=== PATIENT | female | born 1980 | race Caucasian/White ===

== ENCOUNTER → 2016-10-06 | Outpatient (CLI) | payer BC ==
[2016-10-06 13:36] LABS: MEAN CORPUSCULAR HEMOGLOBIN 30.2 pg (27.0-33.0); MEAN CORPUSCULAR HGB CONC 33.3 g/dl (32.0-36.5); MEAN CORPUSCULAR VOLUME 90.7 fl (80.0-96.0); RED CELL DISTRIBUTION WIDTH 12.7 % (11.5-14.5); WHITE BLOOD COUNT 8.3 K/mm3 (4.0-10.0)
== END ==
LOC: M SMT 08:08
PROVIDERS: ATTEND Advanced Practice Midwife
DX: Z34.82 Encounter for supervision of other normal pregnancy, second trimester (principal)
CPT/HCPCS: 36415; 82950; 85027; 86850; 86900; 86901; J2790

== ENCOUNTER → 2016-12-15 | Outpatient (REF) | payer BC | LOC: M LAB REF 16:49 | PROVIDERS: ATTEND Advanced Practice Midwife | DX: Z34.83 Encounter for supervision of other normal pregnancy, third trimester (principal) ==

== ENCOUNTER 2017-01-02 07:45 | Inpatient (IN) | payer BC ==
[~2017-01-02] VITALS: Ht 170.2 cm; Wt 95.0 kg
[2017-01-02] VITALS (36 sets, daily range): BP systolic 106–168; BP diastolic 52–91
[2017-01-02] MEDS ORDERED: RANI15TA PO (08:26)
[2017-01-02] MEDS ORDERED: PRENTAB9 PO (08:26)
--- NOTE | 2017-01-02 08:47 | HPE ---
DATE OF ADMISSION: 01/02/2017 36-year-old, (G) 2, para (P) 0-0-1-0 female at 39 and 2/7 weeks gestation by last menstrual period (LMP) consistent with 10 week ultrasound, expected date of confinement (EDC) of 01/07/2017 who presents with spontaneous loss of fluid per vagina at 5:30 a.m. on the morning of admission. She continued to leak fluid throughout the morning and she started to increase cramping contractions. She denies vaginal bleeding. COURSE: The patient initially had care at 10 weeks gestation on 06/15/2016. Her first trimester blood pressure was 120/60. Weight was 173 pounds. course was significant for an elevated quad screen with a 1:275 risk of Downs syndrome. She had a subsequent normal [place] test and normal consult at the Center in [place]. The remainder of her course was unremarkable. MEDICAL HISTORY: Cervical dysplasia. SURGICAL HISTORY: Cryotherapy to the cervix in 2000. ALLERGIES: No known drug allergies. SOCIAL HISTORY: The patient is . She denies cigarettes, alcohol or drug use during . FAMILY HISTORY: Noncontributory. PHYSICAL EXAMINATION: Blood pressure 124/72. Weight 215 pounds. She appears comfortable. Head and Neck Exam: Normal. Lungs: Clear. Heart: Regular rate and rhythm. Abdomen: Nontender. Gravid. heart tones Category 1. Extremities: Nontender. Sterile Vaginal Exam: Grossly ruptured, clear fluid noted. Cervix 2 cm, 80%, -2 station, posterior, vertex. LABS: Blood type O negative. Rubella immune. RPR nonreactive. Hepatitis B and C negative. HIV negative. Diabetes screen 64. GBS negative on 12/15/2016. ASSESSMENT: 36-year-old, G2, P0-0-1-0 female at 39 and 2/7 weeks gestation with spontaneous rupture of membranes. PLAN: To admit for delivery on 01/02/2017. Will augment early labor with misoprostol.
[2017-01-02 09:03] LABS: MEAN CORPUSCULAR HEMOGLOBIN 31.2 pg (27.0-33.0); MEAN CORPUSCULAR HGB CONC 34.2 g/dl (32.0-36.5); MEAN CORPUSCULAR VOLUME 91.3 fl (80.0-96.0); WHITE BLOOD COUNT 10.5 K/mm3 (4.0-10.0)
[2017-01-02] MEDS: miSOPROStol 50 MCG 1/2 TAB (S0191) PO SCH ×2 (09:04→13:16)
[2017-01-02] MEDS ORDERED: LR 1,000 ML IV SCH (18:20)
[2017-01-02] MEDS ORDERED: OXYTOCIN DRIP 30 UNITS in APPROPRIATE DILUENT 1 EA IV SCH (18:30)
[2017-01-02] MEDS ORDERED: FENTANYL 2MCG/ML ROPIVACAINE 0.2% IN 0.9% NACL 200ML IVBAG As Ordered ONE (21:02)
[2017-01-02] MEDS ORDERED: diphenhydrAMINE INJ 50MG/ML VIAL (J1200) IV PRN (21:45)
[2017-01-02] MEDS ORDERED: LACTATED RINGER'S 1000 ML IV PRN (21:45)
[2017-01-02] MEDS ORDERED: ONDANSETRON 4MG/2ML VIAL (J2405) IV PRN (21:45)
[2017-01-02] MEDS ORDERED: ePHEDrine SULFATE 25 MG/5 ML(5MG/ML) SYRINGE IV PRN (21:45)
[2017-01-02] MEDS ORDERED: FENTANYL/ROPIVACAINE/NACL BAG 200 ML EPIDURAL SCH (21:45)
[2017-01-02] MEDS ORDERED: NALOXONE INJ 0.4 MG/1 ML VIAL (J2310) IV PRN (21:45)
[2017-01-02] MEDS ORDERED: EPIDURAL COMMENT XX SCH (21:45)
[2017-01-02] MEDS ORDERED: EPIDURAL/PCA KEYS XX PRN (21:45)
[2017-01-02] MEDS ORDERED: REFRIGERATOR IV KEYS XX PRN (21:45)
[2017-01-03] VITALS (13 sets, daily range): BP systolic 115–146; BP diastolic 55–87
[2017-01-03] MEDS ORDERED: MORPHINE PRES-FREE INJ 10 MG/10 ML VIAL (J2274) As Ordered ONE (02:22)
[2017-01-03] MEDS ORDERED: BICITRA 30ML SOLN UDC As Ordered ONE (02:23)
[2017-01-03] MEDS ORDERED: ceFAZolin 2 GM/D5W 50 ML IV BAG (J0690) As Ordered ONE (02:23)
[2017-01-03] MEDS ORDERED: OXYTOCIN INJ 10 UNITS/ML VIAL (J2590) As Ordered ONE ×2 (02:23→03:02)
[2017-01-03] MEDS ORDERED: LIDOCAINE 2% W/EPIN INJ 20ML **PRES FREE As Ordered ONE (02:26)
[2017-01-03] MEDS ORDERED: BICITRA 30ML SOLN UDC PO ONE (02:30)
[2017-01-03] MEDS ORDERED: NALOXONE INJ 0.4 MG/1 ML VIAL (J2310) IV PRN ×2 (02:45)
[2017-01-03] MEDS ORDERED: METOCLOPRAMIDE INJ 10MG/2ML VIAL (J2765) IV PRN ×2 (02:45→04:00)
[2017-01-03] MEDS ORDERED: ONDANSETRON 4MG/2ML VIAL (J2405) IV PRN ×3 (02:45→04:00)
[2017-01-03] MEDS ORDERED: NALBUPHINE HCL 10 MG/ML AMP (J2300) IV PRN ×2 (02:45→04:00)
[2017-01-03] MEDS ORDERED: KETOROLAC 60 MG/2 ML VIAL (J1885) As Ordered ONE (03:04)
[2017-01-03] MEDS ORDERED: ONDANSETRON 4MG/2ML VIAL (J2405) As Ordered ONE (03:04)
[2017-01-03] MEDS: LR 1,000 ML IV SCH ×2 (03:40→09:01)
[2017-01-03] MEDS ORDERED: PERCOCET 5MG/325MG TAB PO PRN ×2 (03:45→04:00)
[2017-01-03] MEDS ORDERED: MEASLES,MUMPS,RUBELLA VACCINE INJ (MMR-II) (90707) SC SCH (03:45)
[2017-01-03] MEDS ORDERED: OXYTOCIN DRIP 30 UNITS in APPROPRIATE DILUENT 1 EA IV ONE (03:45)
[2017-01-03] MEDS ORDERED: RHOGAM 300 MCG (1500 IU) INJ (J2790) IM SCH (03:45)
[2017-01-03] MEDS ORDERED: DOCUSATE SODIUM 100 MG CAP PO PRN (03:45)
[2017-01-03 03:47] LABS: CORD GAS ABE V -0.8; CORD GAS HCO3 V 25.1 MEQ/L; CORD GAS O2 SAT V 67.9 %; CORD GAS PCO2 V 46.1 mmHg; CORD GAS PH V 7.354 UNITS; CORD GAS PO2 V 29.9 mmHg; CORD GAS TCO2 V 26.5 MEQ/L
[2017-01-03 03:49] LABS: CORD GAS ABE A -0.6; CORD GAS HCO3 A 27.9 MEQ/L; CORD GAS O2 SAT A 15.2 %; CORD GAS PCO2 A 62.3 mmHg; CORD GAS PH A 7.269 UNITS; CORD GAS PO2 A 11.4 mmHg; CORD GAS SBC A 21.9 MEQ/L; CORD GAS TCO2 A 29.8 MEQ/L
[2017-01-03] MEDS ORDERED: fentaNYL 100 MCG/2 ML INJECTION (J3010) IV PRN (04:00)
[2017-01-03] MEDS ORDERED: HYDROmorphone HCL 1 MG/ML SYRINGE (J1170) IV PRN (04:00)
[2017-01-03] MEDS ORDERED: LR 1,000 ML IV SCH (04:00)
[2017-01-03] MEDS ORDERED: MEPERIDINE INJ 25 MG/ML VIAL (J2175) IV PRN (04:00)
[2017-01-03] MEDS: PRENATAL VITAMIN TAB PO SCH (08:59)
[2017-01-03] MEDS: KETOROLAC 30 MG/ML VIAL (J1885) IV SCH ×3 (09:00→20:37)
[2017-01-04 02:15] VITALS: BP 123/73
[2017-01-04] MEDS: KETOROLAC 30 MG/ML VIAL (J1885) IV SCH (04:06)
[2017-01-04 06:00] VITALS: BP 117/71
[2017-01-04 07:19] LABS: MEAN CORPUSCULAR HEMOGLOBIN 30.2 pg (27.0-33.0); MEAN CORPUSCULAR HGB CONC 32.6 g/dl (32.0-36.5); MEAN CORPUSCULAR VOLUME 92.6 fl (80.0-96.0); RED CELL DISTRIBUTION WIDTH 13.1 % (11.5-14.5); WHITE BLOOD COUNT 12.8 K/mm3 (4.0-10.0)
[2017-01-04] MEDS: PRENATAL VITAMIN TAB PO SCH (08:40)
[2017-01-04 10:15] VITALS: BP 144/80
--- NOTE | 2017-01-04 10:43 | RO ---
DATE OF PROCEDURE: 01/03/2017 PREPROCEDURE DIAGNOSIS: 39 plus weeks gestation, arrest of descent, brow presentation. POSTPROCEDURE DIAGNOSIS: 39 plus weeks gestation, arrest of descent, brow presentation. PROCEDURE: Primary low transverse section. SURGEON: Dr. Hank Knapp BEHAVIORAL HEALTH WORKER: ANESTHESIA: Epidural. ESTIMATED BLOOD LOSS 400 mL. URINE OUTPUT: 200 mL. FINDINGS: 6 pounds, 13 ounce 3090 gram female infant. Apgars 8 and 9 in the occiput posterior brow position. Nuchal cord times one. Normal uterus , fallopian tubes and ovaries. DESCRIPTION OF PROCEDURE: The patient taken to the operating room where epidural anesthesia was found to be adequate. She was prepped and draped in a sterile fashion in the supine position. A Davis catheter was in place. A Pfannenstiel incision made with the scalpel and carried through to the fascia. The fascia was nicked and extended to the peritoneal cavity. It was entered and a bladder flap was created. A curvilinear incision was made in the lower uterine segment. Clear fluid was noted. This was extended manually. was delivered in the vertex position without difficulty using standard maneuvers. The shoulders delivered with ease. The cried spontaneously, the cord was doubly clamped and cut. The was handed off the awaiting nurse. The placenta was expressed. The uterus exteriorized and cleared of clots and debris. The uterine incision was closed with 0 Vicryl in an a running locked fashion. A second imbricating layer of 0 Vicryl was placed. The uterus placed back in the abdominal cavity. The peritoneum was closed with #2-0 Vicryl in a running fashion. The fascia was closed with 0 Vicryl in a running fashion. The deep layer was irrigated and closed with #3-0 chromic skin as well #4-0 Monocryl subcuticular suture. Sponge, instrument and needle counts were correct.
[2017-01-04] MEDS: IBUPROFEN 800 MG TAB PO SCH ×2 (10:56→18:56)
[2017-01-04 14:50] VITALS: BP 125/76
[2017-01-04] MEDS: PERCOCET 5MG/325MG TAB PO PRN (16:52)
[2017-01-04 17:28] VITALS: BP 129/73
[2017-01-04 22:25] VITALS: BP 126/74
[2017-01-05] MEDS: PERCOCET 5MG/325MG TAB PO PRN ×2 (01:12→06:55)
[2017-01-05] MEDS: IBUPROFEN 800 MG TAB PO SCH (02:49)
--- NOTE | 2017-01-05 07:23 | DSES ---
Discharge Summary DATE OF ADMISSION: 01/02/2017 DATE OF DISCHARGE: 01/05/2017 DISCHARGE DIAGNOSIS: Primary section, postop day #2, stable condition. SURGEON: Dr Hank Knapp HISTORY: Rose Marie is a 36-year-old, 2, para 1-0-1-1 now, who was admitted to labor and delivery at 39-2/7 weeks gestation with spontaneous rupture of membranes. Her labor was augmented with misoprostol and intravenous (IV) Pitocin. She did utilize an epidural for her labor coping. She underwent primary section on 01/03/2017 for arrest of descent with malpresentation, brow presentation, Dr. Hank Knapp, surgeon. She delivered a live female weighing 3090 grams (6 pounds 13 ounces), 8 and 9. Her postoperative course has been uncomplicated. Her pain has been well controlled with oral ibuprofen and Percocet. She has been out of bed for self care, infant care and tyson care. She is voiding without difficulty, passing flatus and has no complaints today. well. Vital signs last noted : Temperature 98.2, pulse 73, respirations 18, blood pressure 126/74. She is alert and oriented times three. She is smiling and talkative. Breasts are soft, nontender. Abdomen: Fundus firm at U. Incision is well-approximated. There is no drainage, no warmth, no redness and no edema. Perineum is intact. Lochia rubra scant. Bilateral lower extremity + 1 pitting edema. ASSESSMENT: Primary section, postop day #2,stable condition. PLAN: Discharge the patient to home. Prescriptions have been the prescribed by Dr. Knapp for Percocet 5/325, 1-2 tablets by mouth every 6 hours as needed for pain and [id number] ibuprofen as needed. I did review discharge instructions with the patient, including breast care, incision care, tyson care, pelvic rest, activity and lifting restrictions, access to care, danger signs in which to report as well. She is to followup [facility] for a 2-week incision check and a 6-week visit. All the patient's questions have been answered and she does desire discharge home today. [facility]ITAL[facility]and[facility]
[2017-01-05] MEDS ORDERED: IBUP-1114 PO (07:48)
[2017-01-05] MEDS ORDERED: STUACAP PO (07:48)
[2017-01-05] MEDS ORDERED: OXYC1TAB23 PO ×3 (07:49→11:49)
[2017-01-05] MEDS: PRENATAL VITAMIN TAB PO SCH (08:14)
== END 2017-01-05 11:00 | disposition home or self-care (01) | DRG 540 ==
LOC: M LDO 07:45 → M LDI 08:12 → M OBS 01-03 05:15
PROVIDERS: ADMIT Specialist; ATTEND Specialist
PROC: 10D00Z1 Extraction of Products of Conception, Low, Open Approach (ICD-10-PCS; principal; 2017-01-03)
DX: O32.4XX0 Maternal care for high head at term, not applicable or unspecified (principal); Z37.0 Single live birth; Z3A.39 39 weeks gestation of pregnancy; O32.3XX0 Maternal care for face, brow and chin presentation, not applicable or unspecified

== ENCOUNTER → 2018-03-04 | Outpatient (REF) | payer BC ==
[2018-03-04 22:54] LABS: CHLAMYDIA DNA AMPLIFICATION NEGATIVE (NEGATIVE); GC DNA AMPLIFICATION NEGATIVE (NEGATIVE)
== END ==
LOC: M LAB REF 18:19
DX: Z11.3 Encounter for screening for infections with a predominantly sexual mode of transmission (principal); R10.30 Lower abdominal pain, unspecified
CPT/HCPCS: 87591

== ENCOUNTER → 2018-03-04 | Outpatient (REF) | payer BC | LOC: M SFHCPLAZ 17:02 | DX: Z00.00 Encounter for general adult medical examination without abnormal findings (principal); G43.909 Migraine, unspecified, not intractable, without status migrainosus; L70.9 Acne, unspecified ==

== ENCOUNTER → 2018-03-14 | Outpatient (CLI) | payer BC | LOC: M RAD 17:11 | DX: R10.30 Lower abdominal pain, unspecified (principal) | CPT/HCPCS: 76856 ==

== ENCOUNTER → 2018-06-03 | Outpatient (CLI) | payer BC ==
[2018-06-03 10:08] LABS: ANION GAP 7 MEQ/L (8-16); BLOOD UREA NITROGEN 16 MG/DL (7-18); CALCIUM LEVEL 8.6 MG/DL (8.5-10.1); CARBON DIOXIDE LEVEL 27 MEQ/L (21-32); CHLORIDE LEVEL 108 MEQ/L (98-107); CHOLESTEROL LEVEL 182 MG/DL (<200); CHOLESTEROL RISK RATIO 3.084 (<5); CREATININE FOR GFR 0.85 MG/DL (0.55-1.30); FREE T4 0.98 NG/DL (0.76-1.46); GLOMERULAR FILTRATION RATE > 60.0 (>60); GLUCOSE, FASTING 87 MG/DL (70-100); HDL CHOLESTEROL 59 MG/DL (>40); LDL CHOLESTEROL 107 MG/DL (<100); NON-HDL-C 123 MG/DL; POTASSIUM SERUM 3.9 MEQ/L (3.5-5.1); SODIUM LEVEL 142 MEQ/L (136-145); THYROID STIMULATING HORMONE 0.884 uIU/ML (0.358-3.740); TRIGLYCERIDES LEVEL 79 MG/DL (<150)
== END ==
LOC: M LAB 08:27
DX: Z00.00 Encounter for general adult medical examination without abnormal findings (principal)
CPT/HCPCS: 84443

== ENCOUNTER → 2018-11-13 | Outpatient (REF) | payer BC ==
[~2018-11-13] MED LIST: IBUP-1114 PO; OXYC1TAB23 PO; PRENTAB9 PO; RANI15TA PO; STUACAP PO
== END ==
LOC: M SFHCPLAZ 15:38
PROVIDERS: ATTEND Nurse Practitioner Family
DX: Z53.9 Procedure and treatment not carried out, unspecified reason (principal); R19.01 Right upper quadrant abdominal swelling, mass and lump

== ENCOUNTER → 2018-11-29 | Outpatient (CLI) | payer BC ==
--- NOTE | 2018-11-29 11:25 | REP ---
BILATERAL RIBS, EIGHT VIEWS: HISTORY: Right rib pain. The lungs are clear. There is no acute fracture or bone lesion. IMPRESSION: No acute disease. Electronically Signed by Hank Boogie MD 11/29/2018 11:32 A
== END ==
LOC: M SMT 08:58
PROVIDERS: ATTEND Nurse Practitioner Family
DX: R07.81 Pleurodynia (principal)

== ENCOUNTER 2019-01-24 11:07 | Emergency (ER) | payer BC ==
[~2019-01-24] VITALS: Ht 170.2 cm; Wt 80.2 kg
[2019-01-24 11:43] LABS: BASO % 0.6 % (0.0-1.0); EOS % 0.6 % (0.0-3.0); HEMATOCRIT 41.1 % (36.0-47.0); HEMOGLOBIN 13.9 g/dl (12.0-15.5); LYMPH # 1.7 10^3/uL (1.5-4.5); LYMPH % 35.1 % (24.0-44.0); MEAN CORPUSCULAR HGB CONC 33.8 g/dl (32.0-36.5); MEAN CORPUSCULAR VOLUME 88.6 fl (80.0-96.0); MONO # 0.4 10^3/uL (0.0-0.8); MONO % 7.8 % (0.0-5.0); NEUTROPHILS # 2.6 10^3/uL (1.8-7.7); NEUTROPHILS % 55.7 % (36.0-66.0); PLATELET COUNT, AUTOMATED 211 10^3/uL (150-450); RED BLOOD COUNT 4.64 10^6/uL (4.00-5.40); WHITE BLOOD COUNT 4.7 10^3/uL (4.0-10.0)
[2019-01-24 12:28] LABS: BLOOD UREA NITROGEN 12 MG/DL (7-18); CALCIUM LEVEL 9.2 MG/DL (8.5-10.1); CARBON DIOXIDE LEVEL 26 MEQ/L (21-32); CHLORIDE LEVEL 106 MEQ/L (98-107); CREATININE FOR GFR 0.65 MG/DL (0.55-1.30); GLOMERULAR FILTRATION RATE > 60.0 (>60); GLUCOSE, FASTING 89 MG/DL (70-100); HCG, SERUM QUANTITATIVE 14435 MIU/ML; POTASSIUM SERUM 3.8 MEQ/L (3.5-5.1); SODIUM LEVEL 140 MEQ/L (136-145)
--- NOTE | 2019-01-24 13:22 | REP ---
PELVIC ULTRASOUND: Real-time sonographic evaluation of the pelvis performed utilizing transabdominal and endovaginal technique. Uterus measures 8.7 x 3.7 x 6.5 cm. In the right fundal horn of the uterus an irregular gestational sac is seen with a mean sac diameter of 16 mm corresponding to an estimated gestational age of 6 weeks 3 days. However this is very peripherally located and laterally there is only 1 mm thickness of myometrium. This is most consistent with a right cornual ectopic . Within the gestational sac there is a yolk sac and a possible 3 mm pole without heart motion. Right ovary measures 3.4 x 1.7 x 2.2 cm and contains a complex cystic structure probably representing a corpus luteum 1.8 cm in diameter. Left ovary is unremarkable 3.4 x 1.2 x 1.8 cm. There is no ovarian torsion, resistive index of each ovary is 0.44. Trace free fluid is seen. IMPRESSION: Findings compatible with right cornual ectopic as discussed in detail above. Electronically Signed by Evgeny Cahng MD 01/24/2019 04:17 P
[2019-01-24] MEDS ORDERED: RHOGAM 300 MCG (1500 IU) INJ (J2790) IM ONE (14:45)
[2019-01-24 16:05] VITALS: BP 121/71
--- NOTE | 2019-01-25 08:42 | ED PDOC ---
Post-Departure Follow-Up dr jackson faxed formal report of ob us for fu Kam Jacinto MD Jan 25, 2019 08:42
== END 2019-01-24 16:18 | disposition home or self-care (01) ==
LOC: M ED 11:07
DX: O08.0 Genital tract and pelvic infection following ectopic and molar pregnancy (principal); O26.851 Spotting complicating pregnancy, first trimester; Z3A.01 Less than 8 weeks gestation of pregnancy
CPT/HCPCS: 76801; 76817; 80048; 81001; 84702; 85025; 86850; 86901; 93976; 96372; 99284; J2790

== ENCOUNTER 2019-01-25 12:49 | Day surgery (SDC) | payer BC ==
[~2019-01-25] VITALS: Ht 170.2 cm; Wt 80.6 kg
[2019-01-25] MEDS ORDERED: MORPHINE 4 MG/ML 1ML VIAL/SYRINGE (J2270) IV ONE (13:45)
[2019-01-25] MEDS ORDERED: ONDANSETRON 4MG/2ML VIAL (J2405) IV ONE (13:45)
[2019-01-25] MEDS ORDERED: NS 1,000 ML IV ONE (14:00)
[2019-01-25 14:50] LABS: BASO % 0.7 % (0.0-1.0); EOS # 0.1 10^3/uL (0.0-0.50); EOS % 1.3 % (0.0-3.0); HEMATOCRIT 41.2 % (36.0-47.0); HEMOGLOBIN 13.9 g/dl (12.0-15.5); LYMPH # 2.2 10^3/uL (1.5-4.5); LYMPH % 39.9 % (24.0-44.0); MEAN CORPUSCULAR HGB CONC 33.7 g/dl (32.0-36.5); MEAN CORPUSCULAR VOLUME 88.8 fl (80.0-96.0); MONO # 0.4 10^3/uL (0.0-0.8); MONO % 7.5 % (0.0-5.0); NEUTROPHILS # 2.8 10^3/uL (1.8-7.7); NEUTROPHILS % 50.4 % (36.0-66.0); PLATELET COUNT, AUTOMATED 222 10^3/uL (150-450); RED BLOOD COUNT 4.64 10^6/uL (4.00-5.40); WHITE BLOOD COUNT 5.5 10^3/uL (4.0-10.0)
[2019-01-25 15:32] LABS: ALBUMIN 4.2 GM/DL (3.2-5.2); ALT/SGPT 20 U/L (12-78); BILIRUBIN,TOTAL 0.2 MG/DL (0.2-1.0); BLOOD UREA NITROGEN 12 MG/DL (7-18); CALCIUM LEVEL 8.7 MG/DL (8.5-10.1); CARBON DIOXIDE LEVEL 25 MEQ/L (21-32); CHLORIDE LEVEL 108 MEQ/L (98-107); GLOMERULAR FILTRATION RATE > 60.0 (>60); GLUCOSE, FASTING 89 MG/DL (70-100); HCG, SERUM QUANTITATIVE 13766 MIU/ML; POTASSIUM SERUM 3.6 MEQ/L (3.5-5.1); SODIUM LEVEL 144 MEQ/L (136-145); TOTAL PROTEIN 7.5 GM/DL (6.4-8.2)
--- NOTE | 2019-01-25 15:42 | REP ---
Clinical: Pelvic pain and vaginal bleeding. Technique: Transabdominal and transvaginal first trimester obstetrical ultrasound with color Doppler evaluation. Comparison: 01/24/2019. Findings: Heterogeneous anteverted uterus with decidual reaction measures 8.4 x 3.9 x 5.0 cm. The gestational sac is now elongated in appearance and again identified along the right side of the fundus with less than 1.7 mm of surrounding myometrium. Bilateral maternal ovaries are normal in appearance and vascularity without torsion. Right ovary measures 2.5 x 1.6 x 1.9 cm with 1.3 cm corpus luteal cyst (RI 0.41). Left ovary measures 2.1 x 1.3 x 1.5 cm (RI 0.67). Impression: Findings are suspicious for cornual ectopic and the abnormal shape to the gestational sac suggest the possibility of impending spontaneous . Close clinical observation is recommended. Electronically Signed by Sukumar Stoddard MD 01/25/2019 03:33 P
[2019-01-25] MEDS ORDERED: LIDOCAINE 1% MDV 20ML VIAL As Ordered ONE (17:39)
[2019-01-25] MEDS ORDERED: DOXYCYCLINE HYCLATE 100 MG/10 ML VIAL As Ordered ONE (17:54)
[2019-01-25] MEDS ORDERED: LIDOCAINE 2% INJ 100 MG/5 ML SDV (FOR ANES.) As Ordered ONE (17:55)
[2019-01-25] MEDS ORDERED: MIDAZOLAM INJ 2 MG/2 ML VIAL (J2250) As Ordered ONE ×2 (17:55→20:32)
[2019-01-25] MEDS ORDERED: fentaNYL 100 MCG/2 ML INJECTION (J3010) As Ordered ONE (17:55)
[2019-01-25] MEDS ORDERED: PROPOFOL 200 MG/20 ML VIAL As Ordered ONE ×2 (17:55→21:33)
[2019-01-25] MEDS ORDERED: ONDANSETRON 4MG/2ML VIAL (J2405) As Ordered ONE (20:33)
[2019-01-25] MEDS ORDERED: SILVER NITRATE APPLICATOR As Ordered ONE (21:36)
[2019-01-25] MEDS: LR 1,000 ML IV SCH ×2 (21:48→22:32)
[2019-01-25] MEDS ORDERED: MEPERIDINE INJ 25 MG/ML VIAL (J2175) IV PRN (22:00)
[2019-01-25] MEDS ORDERED: PERCOCET 5MG/325MG TAB PO PRN (22:00)
[2019-01-25] MEDS ORDERED: ONDANSETRON 4MG/2ML VIAL (J2405) IV PRN (22:00)
[2019-01-25] MEDS ORDERED: METOCLOPRAMIDE INJ 10MG/2ML VIAL (J2765) IV PRN (22:00)
[2019-01-25] MEDS ORDERED: fentaNYL 100 MCG/2 ML INJECTION (J3010) IV PRN (22:00)
[2019-01-25] MEDS ORDERED: PERCOCET 5MG/325MG TAB As Ordered ONE (22:07)
[2019-01-25] MEDS ORDERED: LR 1,000 ML IV SCH (22:30)
[2019-01-25 22:45] VITALS: BP 125/79
[2019-01-25 23:15] VITALS: BP 121/66
[2019-01-25 23:45] VITALS: BP 115/56
[2019-01-26 00:20] VITALS: BP 118/60
--- NOTE | 2019-01-27 08:21 | RO ---
DATE OF PROCEDURE: 01/25/2019 PREOPERATIVE DIAGNOSIS: First trimester loss, of unknown location. Cornual ectopic versus failed intrauterine /spontaneous . POSTOPERATIVE DIAGNOSIS: First trimester loss, of unknown location. Cornual ectopic versus failed intrauterine /spontaneous . Pathology was pending at the conclusion of the procedure. FINDINGS: Intrauterine tissue obtained during suction D&C was grossly consistent with products of conception. PROCEDURE PERFORMED: Suction dilation and curettage, hysteroscopy. SURGEON: Dr. Etienne Alves DO FACOG RULING MACHINE FEEDER: none ANESTHESIA: Monitored anesthesia care (MAC) and local paracervical block. SPECIMENS TO PATHOLOGY: Intrauterine tissue. ESTIMATED BLOOD LOSS: 100 mL. FLUIDS REPLACED: 300 mL crystalloid intraoperatively DRAINS: In-and-out catheter 50-100 mL urine output. COMPLICATIONS: None. PREOPERATIVE ANTIBIOTICS: Doxycycline 100 mg IV times one. INDICATION: The patient is a 39-year-old G3, now P1-0-2-1. She is approximately 6-7 weeks by last menstrual period. She presented to the emergency room (ER) twice in the past 2 days with complaints of vaginal bleeding. Yesterday her quantitative hCG was around 14,000 with a pelvic ultrasound that was suggestive of a cornual ectopic . However, I reviewed the images myself and put this diagnosis into question. There remained a possibility of this being an intrauterine . The plan yesterday was to have the patient return for a quantitative hCG level in 48 hours and a repeat ultrasound. However, the patient experienced pain and bleeding that prompted an earlier return to the ER. The quantitative hCG level on repeat was 13,000 indicating an abnormal . The pelvic ultrasound was again suggestive of a cornual ectopic but, again, there was no definitive evidence. The decision was made to proceed with a suction dilation curettage to obtain the intrauterine tissue. I also had the plan of looking hysteroscopically to see if there was any evidence of intrauterine tissue that was consistent with products of conception. The patient agreed to proceed with this plan. She was taken to the operating room with an IV running and in good and stable condition. DESCRIPTION OF PROCEDURE: After the patient was counseled and consented on the risks, benefits, indications and alternatives of the procedure and informed consent was obtained, she was taken to the operating room with an IV running and placed on operating table. Anesthesia was found to be adequate. The patient was comfortable and asleep. She was placed in the high lithotomy position. She was prepared and draped in a normal sterile fashion. Time-out was performed per protocol. The bladder was drained with an in-and-out sterile catheter. The sterile speculum was placed with good visualization of the cervix. The anterior lip of the cervix was grasped with single-tooth tenaculum and downward traction was applied. The cervix was sequentially dilated with Matthew dilators. The hysteroscope was placed transcervical into the intrauterine cavity. In the left corner of the uterus, there did appear to be intrauterine tissue consistent with products of conception. The hysteroscope was removed. The suction curette was placed transcervical into the intrauterine cavity and suction was applied. Tissue and blood return was noted and suction was continued until of minimal blood and tissue return. That curette was removed. The sharp curette was placed transcervically into the intrauterine cavity and a sharp curettage was performed throughout the cavity until a gritty texture was noted throughout the cavity. Minimal tissue return was noted. The hysteroscope was placed one additional time into the intrauterine cavity to ensure that all the tissue had been removed. The cavity was empty of any tissue that would be concerning for products of conception. The hysteroscope was removed. The single-tooth tenaculum was removed. The tenaculum sites were cauterized with the silver nitrate. The tissue was sent for fresh-frozen evaluation to ensure there were chorionic villi with this tissue. This would indicate a failed intrauterine /spontaneous . Of note after the frozen section and after the patient had been transferred to the postanesthesia care unit (PACU), it was confirmed that there was chorionic villi present within the frozen section, making the diagnosis consistent with a failed intrauterine . The patient was notified of this information. She will be discharged home with plans to follow up in 2-3 weeks. Of note, the sponge and instrument counts were correct per protocol. She was transferred to PACU in good stable to good and stable condition. BENJAMIN
== END 2019-01-26 00:25 | disposition home or self-care (01) ==
LOC: M ED 12:49 → M SDC 17:00 → M ED 17:56 → M PED 22:42 → M SDC 01-26 00:25
PROVIDERS: ATTEND Obstetrics & Gynecology
DX: O02.1 Missed abortion (principal)
CPT/HCPCS: 59820; 76801; 76817; 80053; 84702; 85025; 88305; 93976; 96361; 96374; 96375; 99284; J2250; J2270; J2405; J3010

== ENCOUNTER → 2019-04-07 | Outpatient (CLI) | payer BC ==
[~2019-04-07] MED LIST changes: +otc prenatal vit
== END ==
LOC: M LAB 16:40
PROVIDERS: ATTEND Obstetrics & Gynecology
DX: N91.2 Amenorrhea, unspecified (principal)

== ENCOUNTER → 2019-04-09 | Outpatient (CLI) | payer BC ==
[~2019-04-09] MED LIST changes: -otc prenatal vit
== END ==
LOC: M LAB 16:54
PROVIDERS: ATTEND Obstetrics & Gynecology
DX: N91.2 Amenorrhea, unspecified (principal)

== ENCOUNTER → 2019-04-15 | Outpatient (CLI) | payer BC | LOC: M SMT 11:58 | PROVIDERS: ATTEND Obstetrics & Gynecology | DX: O20.0 Threatened abortion (principal); Z3A.00 Weeks of gestation of pregnancy not specified ==

== ENCOUNTER → 2019-04-17 | Outpatient (CLI) | payer BC ==
--- NOTE | 2019-04-17 09:43 | REP ---
First trimester obstetric ultrasound with cramping and spotting, question of ectopic gestation, stat request: The study is performed with transabdominal, endovaginal and Doppler ultrasound assessment: The bladder is adequately distended. The uterus is anteverted and normal size. There is an intrauterine gestational sac in the uterine fundus. There is no identifiable pole, however, there is a yolk sac. The mean gestational os sac diameter is 5.7 mm corresponding to a gestational age of 5 weeks 2 days. CULLEN is 12/16/2019. The The yolk sac is normal size measuring 1.9 mm in diameter. There is no subchorionic hematoma. Right ovary: The right ovary is normal size measuring 2.2 x 1.9 x 1.7 cm. There is no dominant mass or cyst. There is vascular flow with the Doppler resistive index of the parenchymal arteries measuring 0.49. Left ovary: Left ovary is normal size measuring 4.0 x 2.1 x 2.1 cm. There is no dominant mass or cyst. There is vascular flow with the Doppler resistive index of the parenchymal arteries measuring 0.45. There are no adnexal masses. Impression: There is an intrauterine gestational sac with a normal size yolk sac but no pole as described. There are no adnexal masses. There is no free fluid in the pelvis. No subchorionic hematoma. Electronically Signed by Evgeny Puckett MD 04/17/2019 09:35 A
== END ==
LOC: M RAD 08:46
PROVIDERS: ATTEND Obstetrics & Gynecology
DX: O20.0 Threatened abortion (principal); Z3A.01 Less than 8 weeks gestation of pregnancy

== ENCOUNTER 2019-05-01 18:38 | Emergency (ER) | payer BC ==
[~2019-05-01] VITALS: Ht 170.2 cm; Wt 84.5 kg
[2019-05-01] MEDS ORDERED: otc prenatal vit (18:44)
[2019-05-01 19:49] LABS: BASO % 0.6 % (0.0-1.0); EOS # 0.1 10^3/uL (0.0-0.5); EOS % 1.7 % (0.0-3.0); HEMATOCRIT 39.8 % (36.0-47.0); HEMOGLOBIN 13.2 g/dl (12.0-15.5); LYMPH # 2.4 10^3/uL (1.5-5.0); LYMPH % 33.1 % (24.0-44.0); MEAN CORPUSCULAR HEMOGLOBIN 29.3 pg (27.0-33.0); MEAN CORPUSCULAR HGB CONC 33.2 g/dl (32.0-36.5); MEAN CORPUSCULAR VOLUME 88.4 fl (80.0-96.0); MONO # 0.5 10^3/uL (0.0-0.8); MONO % 7.2 % (0.0-5.0); NEUTROPHILS # 4.2 10^3/uL (1.5-8.5); NEUTROPHILS % 57.1 % (36.0-66.0); PLATELET COUNT, AUTOMATED 239 10^3/uL (150-450); WHITE BLOOD COUNT 7.3 10^3/uL (4.0-10.0)
[2019-05-01 20:14] LABS: BLOOD UREA NITROGEN 14 MG/DL (7-18); CALCIUM LEVEL 9.3 MG/DL (8.5-10.1); CARBON DIOXIDE LEVEL 33 MEQ/L (21-32); CHLORIDE LEVEL 105 MEQ/L (98-107); CREATININE FOR GFR 0.69 MG/DL (0.55-1.30); GLOMERULAR FILTRATION RATE > 60.0 (>60); GLUCOSE, FASTING 81 MG/DL (70-100); POTASSIUM SERUM 3.6 MEQ/L (3.5-5.1); SODIUM LEVEL 139 MEQ/L (136-145)
[2019-05-01] MEDS ORDERED: RHOGAM 300 MCG (1500 IU) INJ (J2790) IM ONE (21:00)
[2019-05-01 21:24] LABS: HCG, SERUM QUANTITATIVE 26101 MIU/ML
[2019-05-01 22:37] VITALS: BP 110/55
== END 2019-05-01 22:40 | disposition home or self-care (01) ==
LOC: M ED 18:38
DX: O20.8 Other hemorrhage in early pregnancy (principal); Z87.59 Personal history of other complications of pregnancy, childbirth and the puerperium; O09.529 Supervision of elderly multigravida, unspecified trimester; Z3A.00 Weeks of gestation of pregnancy not specified; Z79.899 Other long term (current) drug therapy
CPT/HCPCS: 80048; 81001; 84702; 85025; 86850; 86900; 86901; 96372; 99283; J2790

== ENCOUNTER → 2019-05-30 | Outpatient (CLI) | payer BC ==
[~2019-05-30] MED LIST changes: +otc prenatal vit
== END ==
LOC: M SMT 14:33
PROVIDERS: ATTEND Obstetrics & Gynecology
DX: O03.4 Incomplete spontaneous abortion without complication (principal)

== ENCOUNTER → 2019-06-05 | Outpatient (CLI) | payer BC | LOC: M SMT 11:49 | PROVIDERS: ATTEND Obstetrics & Gynecology | DX: O03.4 Incomplete spontaneous abortion without complication (principal) ==

== ENCOUNTER → 2019-06-13 | Outpatient (CLI) | payer BC | LOC: M SMT 15:13 | PROVIDERS: ATTEND Obstetrics & Gynecology | DX: O03.4 Incomplete spontaneous abortion without complication (principal) ==

== ENCOUNTER → 2019-06-19 | Outpatient (CLI) | payer BC ==
[2019-06-19 18:11] LABS: HEMATOCRIT 39.6 % (36.0-47.0); HEMOGLOBIN 12.9 g/dl (12.0-15.5); MEAN CORPUSCULAR HEMOGLOBIN 29.1 pg (27.0-33.0); MEAN CORPUSCULAR HGB CONC 32.6 g/dl (32.0-36.5); MEAN CORPUSCULAR VOLUME 89.4 fl (80.0-96.0); PLATELET COUNT, AUTOMATED 251 10^3/uL (150-450); RED BLOOD COUNT 4.43 10^6/uL (4.00-5.40)
[2019-06-19 18:18] LABS: FREE T4 0.95 NG/DL (0.76-1.46); THYROID STIMULATING HORMONE 0.74 uIU/ML (0.358-3.740)
[2019-06-19 18:44] LABS: HEMOGLOBIN A1c 5.2 %
[2019-06-22 00:06] LABS: CARDIOLIPIN IGA ANTIBODY <9 APL U/mL (0-11); CARDIOLIPIN IGG ANTIBODY <9 GPL U/mL (0-14); CARDIOLIPIN IGM ANTIBODY <9 MPL U/mL (0-12)
[2019-06-24 10:15] LABS: DRVV SCREEN 34.2 SEC
[2019-06-24 10:17] LABS: PTT LUPUS TYPE ANTICOAG SCREEN 0.8 (0-1.2)
== END ==
LOC: M SMT 14:35
PROVIDERS: ATTEND Obstetrics & Gynecology
DX: O03.4 Incomplete spontaneous abortion without complication (principal); N96 Recurrent pregnancy loss

== ENCOUNTER → 2019-07-15 | Outpatient (CLI) | payer BC | LOC: M SMT 12:02 | PROVIDERS: ATTEND Obstetrics & Gynecology | DX: O03.4 Incomplete spontaneous abortion without complication (principal) ==

== ENCOUNTER → 2019-07-21 | Outpatient (CLI) | payer BC | LOC: M PLALAB 09:38 | PROVIDERS: ATTEND Obstetrics & Gynecology | DX: O03.4 Incomplete spontaneous abortion without complication (principal) ==

== ENCOUNTER → 2019-08-05 | Outpatient (CLI) | payer BC | LOC: M PLALAB 08:35 | PROVIDERS: ATTEND Obstetrics & Gynecology | DX: O03.4 Incomplete spontaneous abortion without complication (principal) ==

== ENCOUNTER → 2019-08-14 | Outpatient (CLI) | payer BC | LOC: M PLALAB 12:22 | PROVIDERS: ATTEND Obstetrics & Gynecology | DX: O03.4 Incomplete spontaneous abortion without complication (principal) ==

== ENCOUNTER → 2019-08-28 | Outpatient (CLI) | payer BC | LOC: M PLALAB 09:17 | PROVIDERS: ATTEND Obstetrics & Gynecology | DX: O03.9 Complete or unspecified spontaneous abortion without complication (principal) ==

== ENCOUNTER → 2019-12-18 | Outpatient (CLI) | payer BC | LOC: M LABSMTC 12:09 | PROVIDERS: ATTEND Family Medicine | DX: Z11.59 Encounter for screening for other viral diseases (principal); Z20.828 Contact with and (suspected) exposure to other viral communicable diseases ==

== ENCOUNTER → 2020-03-04 | Outpatient (REF) | payer BC ==
[2020-03-04 17:17] LABS: HEMATOCRIT 39.4 % (36.0-47.0); HEMOGLOBIN 13.3 g/dl (12.0-15.5); MEAN CORPUSCULAR HEMOGLOBIN 29.8 pg (27.0-33.0); MEAN CORPUSCULAR HGB CONC 33.8 g/dl (32.0-36.5); MEAN CORPUSCULAR VOLUME 88.3 fl (80.0-96.0); PLATELET COUNT, AUTOMATED 243 10^3/uL (150-450); RED BLOOD COUNT 4.46 10^6/uL (4.00-5.40); WHITE BLOOD COUNT 8.7 10^3/uL (4.0-10.0)
[2020-03-04 19:55] LABS: CHLAMYDIA DNA AMPLIFICATION NEGATIVE (NEGATIVE); GC DNA AMPLIFICATION NEGATIVE (NEGATIVE)
[2020-03-05 09:44] LABS: HEPATITIS C VIRUS ABY INDEX 0.1 INDEX (<0.8); HIV 1&2 SCREEN CENTAUR NEGATIVE (NEGATIVE)
== END ==
LOC: M PLALAB 14:02
PROVIDERS: ATTEND Advanced Practice Midwife
DX: Z34.80 Encounter for supervision of other normal pregnancy, unspecified trimester (principal); Z3A.08 8 weeks gestation of pregnancy
CPT/HCPCS: 36415; 85027; 86762; 86780; 86803; 86850; 86900; 86901; 87086; 87340; 87389; 87491; 87591; 87624; G0123; J2790

== ENCOUNTER → 2020-03-04 | Outpatient (CLI) | payer BC ==
--- NOTE | 2020-03-05 05:00 | REP ---
REASON: Vaginal bleeding. Within the uterus, there is an anechoic structure with increased echoes surrounding it, consistent with a decidual reaction. Within the gestational sac, there is echogenic material, the mean crown-rump length measurement of which is consistent with a 9-week 2-day gestational age. Based on that, the estimated date of delivery is 10/05/2020. Doppler interrogation of the heart shows a heart rate of 176 beats per minute. A small 2.2 x 2.1 x 1.4 cm sized area of decreased echoes was seen adjacent to the developing chorion. Evaluation of the maternal adnexal spaces showed no abnormalities. IMPRESSION: Early OB ultrasound, as described above. Area of decreased echoes seen adjacent to the developing chorion, consistent with a small subchorionic hemorrhage since the patient is experiencing vaginal bleeding. Followup is recommended.
== END ==
LOC: M WHC 16:35
PROVIDERS: ATTEND Advanced Practice Midwife
DX: O26.851 Spotting complicating pregnancy, first trimester (principal); Z3A.09 9 weeks gestation of pregnancy

== ENCOUNTER → 2020-03-13 | Outpatient (CLI) | payer BC | LOC: M LABSMTC 10:58 | PROVIDERS: ATTEND Family Medicine | DX: Z11.59 Encounter for screening for other viral diseases (principal); Z20.828 Contact with and (suspected) exposure to other viral communicable diseases | CPT/HCPCS: C9803; U0003 ==

== ENCOUNTER → 2020-06-18 | Outpatient (CLI) | payer BC ==
--- NOTE | 2020-06-18 10:15 | REP ---
INDICATION: F/U ANATOMY COMPARISON: 06/18/2020 TECHNIQUE: Transabdominal obstetrical ultrasound with color Doppler evaluation. FINDINGS: Examination demonstrates a single live intrauterine in transverse (head to maternal right) presentation. motion is identified by technologist. Placenta is noted anterior and grade 1 without evidence for placenta previa or abruption. Amniotic fluid volume is normal. Cervix measures 3.4 cm in length and appears closed.. Gestational age by LMP 23 weeks 6 days with CULLEN 10/09/2020. Gestational age by current measurements 24 weeks 4 days with CULLEN 10/04/2020. FHR equals 140 beats per minute. Estimated weight 693 grams (64thpercentile). Anatomical assessment demonstrates normal structures including cranium, ventricles, choroid plexus, facial profile, stomach/abdominal wall, kidneys and bladder. IMPRESSION: Single live intrauterine in transverse lie demonstrating appropriate interval growth. The ventricles and choroid plexus appear normal on today's examination. <Electronically signed by Sukumar Stoddard > 06/18/20 1011
== END ==
LOC: M WHC 08:54
PROVIDERS: ATTEND Obstetrics & Gynecology
DX: Z3A.20 20 weeks gestation of pregnancy (principal)

== ENCOUNTER → 2020-07-09 | Outpatient (REF) | payer BC ==
[2020-07-09 10:57] LABS: HEMATOCRIT 37.3 % (36.0-47.0); HEMOGLOBIN 12.1 g/dl (12.0-15.5); MEAN CORPUSCULAR HEMOGLOBIN 29.5 pg (27.0-33.0); MEAN CORPUSCULAR HGB CONC 32.4 g/dl (32.0-36.5); PLATELET COUNT, AUTOMATED 258 10^3/uL (150-450); WHITE BLOOD COUNT 8.4 10^3/uL (4.0-10.0)
== END ==
LOC: M PLALAB 08:12
PROVIDERS: ATTEND Obstetrics & Gynecology
DX: Z3A.24 24 weeks gestation of pregnancy (principal)
CPT/HCPCS: 36415; 82950; 85027; 86850; 86900; 86901; J2790

== ENCOUNTER → 2020-09-17 | Outpatient (REF) | payer BC ==
[~2020-09-17] MED LIST changes: +DOK1CAP7 PO; +IBUP80TA PO; +MAPA500T2 PO; +MIRA3350 PO; +PEPC1TAB5 PO; +PERCOCET PO; +TUMS500C PO
== END ==
LOC: M SFHCWAGY 10:35
PROVIDERS: ATTEND Advanced Practice Midwife
DX: O34.211 Maternal care for low transverse scar from previous cesarean delivery (principal)

== ENCOUNTER → 2020-09-27 | Outpatient (REF) | payer BC ==
[~2020-09-27] MED LIST changes: -DOK1CAP7 PO; -IBUP80TA PO; -MAPA500T2 PO; -MIRA3350 PO; -PERCOCET PO; -TUMS500C PO
[2020-09-27 18:07] LABS: HEMATOCRIT 35.6 % (36.0-47.0); HEMOGLOBIN 11.6 g/dl (12.0-15.5); MEAN CORPUSCULAR HEMOGLOBIN 29.1 pg (27.0-33.0); MEAN CORPUSCULAR HGB CONC 32.6 g/dl (32.0-36.5); MEAN CORPUSCULAR VOLUME 89.4 fl (80.0-96.0); PLATELET COUNT, AUTOMATED 200 10^3/uL (150-450); RED BLOOD COUNT 3.98 10^6/uL (4.00-5.40); WHITE BLOOD COUNT 9.2 10^3/uL (4.0-10.0)
[2020-09-27 18:37] LABS: CREATININE,RANDOM URINE 73.7 MG/DL; TOTAL PROTEIN,RANDOM URINE 12.8 MG/DL (0.0-12.0)
[2020-09-27 18:42] LABS: ALBUMIN 2.6 GM/DL (3.2-5.2); ALT/SGPT 21 U/L (12-78); BILIRUBIN,TOTAL 0.3 MG/DL (0.2-1.0); BLOOD UREA NITROGEN 12 MG/DL (7-18); CALCIUM LEVEL 9.2 MG/DL (8.5-10.1); CARBON DIOXIDE LEVEL 25 MEQ/L (21-32); CHLORIDE LEVEL 106 MEQ/L (98-107); CREATININE FOR GFR 0.67 MG/DL (0.55-1.30); GLOMERULAR FILTRATION RATE > 60.0 (>60); GLUCOSE, FASTING 89 MG/DL (70-100); SODIUM LEVEL 139 MEQ/L (136-145); TOTAL PROTEIN 6.2 GM/DL (6.4-8.2)
== END ==
LOC: M PLALAB 15:10
PROVIDERS: ATTEND Obstetrics & Gynecology
DX: I10 Essential (primary) hypertension (principal)

== ENCOUNTER → 2020-09-29 | Outpatient (CLI) | payer BC ==
[~2020-09-29] MED LIST changes: +DOK1CAP7 PO; +IBUP80TA PO; +MAPA500T2 PO; +PERCOCET PO; +TUMS500C PO
== END ==
LOC: M LABSMTC 09:49
PROVIDERS: ATTEND Anesthesiology
DX: Z01.812 Encounter for preprocedural laboratory examination (principal); Z20.822 Contact with and (suspected) exposure to COVID-19

== ENCOUNTER 2020-10-04 07:29 | Inpatient (IN) | payer BC ==
[~2020-10-04] VITALS: Ht 170.2 cm; Wt 99.7 kg
[2020-10-04] VITALS (8 sets, daily range): BP systolic 119–147; BP diastolic 60–118
[~2020-10-04 07:29] MED LIST changes: -DOK1CAP7 PO; -IBUP80TA PO; -MAPA500T2 PO; -PERCOCET PO; -TUMS500C PO
[2020-10-04] MEDS ORDERED: TUMS500C PO (08:32)
[2020-10-04] MEDS ORDERED: MAPA500T2 PO (08:32)
[2020-10-04 08:43] LABS: HEMATOCRIT 36.5 % (36.0-47.0); HEMOGLOBIN 12.2 g/dl (12.0-15.5); MEAN CORPUSCULAR HEMOGLOBIN 29.9 pg (27.0-33.0); MEAN CORPUSCULAR HGB CONC 33.4 g/dl (32.0-36.5); MEAN CORPUSCULAR VOLUME 89.5 fl (80.0-96.0); PLATELET COUNT, AUTOMATED 203 10^3/uL (150-450); RED BLOOD COUNT 4.08 10^6/uL (4.00-5.40); WHITE BLOOD COUNT 9.4 10^3/uL (4.0-10.0)
[2020-10-04] MEDS ORDERED: ceFAZolin SOD 2 GM in IV 1 EA IV ONE (08:45)
[2020-10-04] MEDS ORDERED: LR 1,000 ML IV SCH (08:45)
[2020-10-04] MEDS ORDERED: BICITRA 30ML SOLN UDC PO ONE (08:45)
[2020-10-04] MEDS ORDERED: LR 1,000 ML IV ONE (08:45)
[2020-10-04] MEDS ORDERED: MORPHINE PRES-FREE INJ 10 MG/10 ML VIAL (J2274) As Ordered ONE (10:01)
[2020-10-04] MEDS ORDERED: ONDANSETRON 4MG/2ML VIAL As Ordered ONE (10:01)
[2020-10-04] MEDS ORDERED: KETOROLAC 60MG 2ML VIAL As Ordered ONE (10:01)
[2020-10-04] MEDS ORDERED: OXYTOCIN INJ 10 UNITS/ML VIAL (J2590) As Ordered ONE (10:01)
[2020-10-04] MEDS ORDERED: dexameTHASONE 4 MG/ML 1ML VIAL (J1100 PER 1MG) As Ordered ONE (10:02)
[2020-10-04] MEDS ORDERED: OXYTOCIN 30 UNITS IN 0.9% NaCl 500ML IV BAG (J2590) As Ordered ONE ×2 (10:06→13:00)
[2020-10-04] MEDS ORDERED: NALOXONE INJ 0.4MG/1ML VIAL (J2310 PER 1MG) IV PRN ×2 (10:24)
[2020-10-04] MEDS ORDERED: diphenhydrAMINE 50MG/ML VIAL (J1200) IV PRN ×2 (10:24→11:45)
[2020-10-04] MEDS ORDERED: NALBUPHINE HCL 10 MG/ML AMP (J2300) IV PRN (10:24)
[2020-10-04] MEDS ORDERED: METOCLOPRAMIDE INJ 10MG/2ML VIAL (J2765 PER 1) IV PRN ×2 (10:24→11:45)
[2020-10-04] MEDS ORDERED: ONDANSETRON 4MG/2ML VIAL IV PRN ×3 (10:24→11:45)
[2020-10-04] MEDS ORDERED: OXYTOCIN DRIP 30 UNITS in IV 1 EA IV SCH (11:22)
--- NOTE | 2020-10-04 11:29 | ROOPDOC ---
[facility] Report Of Operation Report of Operation DATE OF PROCEDURE: 10/04/2020 PREPROCEDURE DIAGNOSES:. 39+ weeks gestation, history of low transverse section 1, declines trial of labor POSTPROCEDURE DIAGNOSES: Same as preprocedure PROCEDURE: Elective repeat low transverse section SURGEON: Etienne Alves DO FACOG SPIRAL WEAVER: Rene Galeas CNM (Essential role in retraction, extraction, and closure of all tissue layers) ANESTHESIA: Spinal/Regional w/ Duramorph ESTIMATED BLOOD LOSS: 500 mL. IV FLUIDS: 2000 mL LR URINE OUTPUT: 200 mL COMPLICATIONS: None. PREOPERATIVE ANTIBIOTICS: Ancef 2g IV x 1. COMPLICATIONS: none DATA: Apgars 9 and 9. Birthweight 3100 g, 6 lbs 13 oz. SPECIMENS: none PRIMARY INDICATION FOR : History of prior low transverse section, declines TOLAC. DESCRIPTION OF PROCEDURE: The patient was counseled on the risks, benefits, indications and alternatives of the procedure. Informed consent was obtained. She was taken to the operating room with IV running and placed on the operating table in the dorsal supine position with a leftward tilt. Regional anesthesia was found to be adequate. Sequential compression devices were placed on the lower extremities. A Davis catheter was placed under sterile conditions. She was prepared and draped in normal sterile fashion. A time out was performed per protocol. Regional anesthesia was again found to be adequate. A Pfannenstiel skin incision was made with the 10 blade. The 10 blade was used to dissect down to the level of the rectus sheath fascia. The rectus sheath pressure was incised midline and this was extended bilaterally with Stanford scissors , and manual stretch. The rectus muscle bellies were dissected off the rectus sheath fascia superiorly and inferiorly using both sharp and blunt dissection. The midline was identified. The peritoneum was identified and entered digitally. The peritoneal opening was extended with manual stretch. The Mobius retractor was placed. The vesicouterine peritoneum was dissected with Metzenbaum scissors to create the bladder flap. A low transverse uterine incision was made with the 10 blade. This was extended with manual stretch. The amniotic sac was punctured, and clear fluid was noted. The baby delivered through the hysterotomy without difficulty. The cord was doubly clamped and cut, and the baby was handed off to awaiting care. data shown above. The placenta was removed manually. The intrauterine cavity was cleared of all clot and debris. The hysterotomy was closed with 0 Vicryl in running locked fashion. This was reinforced with a second imbricating layer using 0 Vicryl in running fashion. Excellent hemostasis of the hysterotomy was noted. The pelvis was irrigated and the fluid suctioned. The Mobius retractor was removed. The peritoneum was closed with 3-0 Vicryl running fashion. The rectus muscle bellies were reapproximated with interrupted stitches using 3-0 Vicryl. The rectus muscles bellies were hemostatic. The rectus sheath fascia was closed with 0 Vicryl running fashion. The subcutaneous layer was irrigated and the fluid suctioned. Small bleeding vessels were cauterized with Bovie. Excellent hemostasis was noted. The subcutaneous layer was reapproximated with 3-0 Vicryl running fashion. Skin was closed with 3-0 Monocryl in subcuticular fashion. An Optifoam bandage was placed over the closed incision. Sponge, needle and instrument counts were correct per protocol throughout the procedure. The leena ent tolerated the entire procedure very well. She was transferred to the PACU in stable condition. DO LOIS Tucker JONATHAN R. DO Oct 04, 2020 11:29
[2020-10-04] MEDS ORDERED: ACETAMINOPHEN 500 MG TAB PO PRN (11:30)
[2020-10-04] MEDS ORDERED: RHOGAM 300 MCG (1500 IU) INJ (J2790) IM SCH (11:30)
[2020-10-04] MEDS ORDERED: MEASLES,MUMPS,RUBELLA VACCINE INJ (MMR-II) (90707) SC SCH (11:30)
[2020-10-04] MEDS ORDERED: PERCOCET 5MG/325MG TAB PO PRN (11:30)
[2020-10-04] MEDS ORDERED: DOK1CAP7 PO (11:32)
[2020-10-04] MEDS ORDERED: IBUP80TA PO (11:32)
[2020-10-04] MEDS ORDERED: PERCOCET PO (11:32)
[2020-10-04] MEDS ORDERED: MEPERIDINE INJ 25 MG/ML VIAL (J2175) IV PRN (11:45)
[2020-10-04] MEDS ORDERED: fentaNYL 100 MCG/2 ML INJECTION (J3010) IV PRN (11:45)
[2020-10-04] MEDS ORDERED: HYDROMORPHONE HCL 0.5 MG/ 0.5 ML SYRINGE (J1170 PER 1) IV PRN (11:45)
[2020-10-04] MEDS: LR 1,000 ML IV SCH ×2 (17:00→20:25)
[2020-10-04] MEDS: KETOROLAC 30 MG/ML 1ML VIAL IV SCH ×2 (17:51→22:54)
[2020-10-04] MEDS: FAMOTIDINE 20 MG TAB PO SCH (20:23)
[2020-10-04] MEDS: DOCUSATE SODIUM 100MG CAPSULE PO SCH (20:24)
[2020-10-05] VITALS (7 sets, daily range): BP systolic 116–138; BP diastolic 59–78
[2020-10-05] MEDS: LR 1,000 ML IV SCH (03:22)
--- NOTE | 2020-10-05 04:50 | IPNPDOC ---
Progress Note Date of Service: Oct 05, 2020 Day#: 1 Progress Note SUBJECT: Rose Marie is a 40-year-old female who had a repeat section yesterday morning. She reports she is ambulating without difficulty, has voided and states her bleeding has been minimal. States her pain has been well managed. Reports she is her without any issues. OBJECTIVE: VITAL SIGNS: Within normal limits, afebrile. Alert and oriented times three. Sitting up in bed. Breath sounds clear to auscultation. Abdomen: Fundus firm at U. Dressing is intact without any fluid noted. No chris thema around dressing. Minimal lochia. ASSESSMENT: Day 1 postoperative PLAN: 1.Continue supportive nursing care. 2. Continue pain management. 3. Patient may shower today. 4. Anticipate discharge to home tomorrow. VS, I&O, 24H, Fishbone Vital Signs/I&O Vital Signs Date Time Temp Pulse Resp B/P (MAP) Pulse Ox O2 Delivery O2 Flow Rate FiO2 10/05/20 02:00 97.0 69 16 116/64 (81) 97 Room Air I&O- Last 24 Hours up to 6 AM 10/05/20 06:00 Intake Total 1100 ml Output Total 2550 ml Balance -1450 ml Laboratory Data 24H LABS Laboratory Tests 2 10/04/20 08:27: Nucleated Red Blood Cells % (auto) 0.0 10/04/20 08:28: Syphilis Serology NONREACTIVE CBC/BMP Laboratory Tests 10/04/20 08:27 KELLY VIERA CNM Oct 05, 2020 04:50
[2020-10-05] MEDS: KETOROLAC 30 MG/ML 1ML VIAL IV SCH (04:58)
[2020-10-05 07:15] LABS: HEMATOCRIT 31.9 % (36.0-47.0); HEMOGLOBIN 10.5 g/dl (12.0-15.5); MEAN CORPUSCULAR HEMOGLOBIN 29.7 pg (27.0-33.0); MEAN CORPUSCULAR HGB CONC 32.9 g/dl (32.0-36.5); MEAN CORPUSCULAR VOLUME 90.4 fl (80.0-96.0); PLATELET COUNT, AUTOMATED 171 10^3/uL (150-450); RED BLOOD COUNT 3.53 10^6/uL (4.00-5.40); WHITE BLOOD COUNT 10.6 10^3/uL (4.0-10.0)
[2020-10-05] MEDS: PRENATAL VITAMINS CHEWABLE TABLET PO SCH (09:35)
[2020-10-05] MEDS: DOCUSATE SODIUM 100MG CAPSULE PO SCH ×2 (09:35→21:49)
[2020-10-05] MEDS: FAMOTIDINE 20 MG TAB PO SCH ×2 (09:36→21:49)
[2020-10-05] MEDS: IBUPROFEN 800 MG TAB PO SCH ×2 (12:13→21:49)
[2020-10-05] MEDS: PERCOCET 5MG/325MG TAB PO PRN ×2 (12:14→17:31)
[2020-10-06] MEDS: IBUPROFEN 800 MG TAB PO SCH (04:56)
[2020-10-06 06:00] VITALS: BP 128/71
[2020-10-06] MEDS: FAMOTIDINE 20 MG TAB PO SCH (08:42)
[2020-10-06] MEDS: PRENATAL VITAMINS CHEWABLE TABLET PO SCH (08:42)
[2020-10-06] MEDS: DOCUSATE SODIUM 100MG CAPSULE PO SCH (08:43)
--- NOTE | 2020-10-06 09:04 | IPNPDOC ---
Progress Note Date of Service: Oct 06, 2020 Day#: 2 Progress Note POD 2 SUBJECT: Rose Marie is a 40-year-old female day 2 postoperative from [facility]. She has been ambulating without difficulty, voiding well, and reports minimal vaginal bleeding. Her pain has been well controlled. She is without issue. No HANKS/vision changes/RUQ pain/fevers/chills/n/v/CP/SOB. OBJECTIVE: VITAL SIGNS: Normotensive, afebrile. Alert and oriented times three. Abdomen: Fundus firm at U. Optifoam dressing is intact without drainage. No e rythema noted around dressing. Extremities: trace edema BLE Labs: pre-op H/H 12.2/36.5 post-op H/H 10.5/31.9 ASSESSMENT: Rose Marie is a 40-year-old female day 2 postoperative from [facility]. Vitals wnl, benign exam. No evidence of infection and hemodynamically stable. PLAN: 1. Discharge to home today 2. Regular diet 3. Vaginal rest, no heavy lifting x2 weeks 4. Discussed care of incision, remove optifoam in 1 week and then keep incision clean and dry, inspecting it daily 5. Return to clinic in 2 weeks for incision check with Dr. Alves 6. Motrin and percocet to pharmacy for pain and colace and miralax for bowel regimen 7. Discussed return precautions at length Julee Townsend MD VS, I&O, 24H, Fishbone Vital Signs/I&O Vital Signs Date Time Temp Pulse Resp B/P (MAP) Pulse Ox O2 Delivery O2 Flow Rate FiO2 10/06/20 06:00 98.3 81 18 128/71 (90) 10/05/20 14:06 97 Room Air Julee Townsend MD Oct 06, 2020 09:04
--- NOTE | 2020-10-06 09:08 | DS.PDOC ---
Discharge Summary General Date of Admission Oct 04, 2020 at 07:29 Date of Discharge Oct 06, 2020 Discharge Summary PROCEDURES PERFORMED DURING STAY: [facility] ADMITTING DIAGNOSES: 1. Term gestation with hx of prior desiring repeat. DISCHARGE DIAGNOSES: 1. Term gestation with hx of prior desiring repeat. Hospital course: Rose Marie is a 40-year-old female day 2 postoperative from [facility]. She has had a be nign /post-op course and at time of discharge, vitals wnl, benign exam. No evidence of infection and hemodynamically stable. DISCHARGE MEDICATIONS: Please see below. ALLERGIES: Please see below. PHYSICAL EXAMINATION ON DISCHARGE: OBJECTIVE: VITAL SIGNS: Normotensive, afebrile. Alert and oriented times three. Abdomen: Fundus firm at U. Optifoam dressing is intact without drainage. No erythema noted around dressing. Extremities: trace edema BLE LABORATORY DATA: Please see below. pre-op H/H 12.2/36.5 post-op H/H 10.5/31.9 DIET: regular DISCHARGE PLAN/INSTRUCTIONS: 1. Discharge to home today 2. Regular diet 3. Vaginal rest, no heavy lifting x2 weeks 4. Discussed care of incision, remove optifoam in 1 week and then keep incision clean and dry, inspecting it daily 5. Return to clinic in 2 weeks for incision check with Dr. Alves 6. Motrin and percocet to pharmacy for pain and colace and miralax for bowel regimen 7. Discussed return precautions at length DISCHARGE CONDITION: Stable TIME SPENT ON DISCHARGE: Greater than 20 minutes. Julee Townsend MD Vital Signs/I&Os Vital Signs Date Time Temp Pulse Resp B/P (MAP) Pulse Ox O2 Delivery O2 Flow Rate FiO2 10/06/20 06:00 98.3 81 18 128/71 (90) 10/05/20 14:06 97 Room Air Discharge Medications Scheduled Docusate Sodium (Dok) 100 Mg Capsule, 100 MG PO BID Ibuprofen (Ibuprofen) 800 Mg Tablet, 800 MG PO Q8H Scheduled PRN Acetaminophen (Mapap) 500 Mg Tablet, 1,000 MG PO for PAIN LEVEL 3-5, (Reported) Calcium Carbonate (Tums) 200 Mg Tab.chew, 500 MG PO for HEARTBURN, (Reported) Famotidine (Pepcid) 20 Mg Tablet, 20 MG PO PRN PRN for HEARTBURN, (Reported) Oxycodone/Acetaminophen (Oxycodone-Acetaminophen 5-325) 1 Each Tablet, 1 TAB PO Q4H PRN for MILD/MODERATE PAIN (PS 1-7) Miscellaneous Medications [otc vit] , (Reported) Allergies Coded Allergies: No Known Allergies (Unverified , 09/27/20) Julee Townsend MD Oct 06, 2020 09:08
[2020-10-06] MEDS ORDERED: MIRA3350 PO (09:09)
== END 2020-10-06 12:35 | disposition home or self-care (01) | DRG 540 ==
LOC: M LDI 07:29 → M OBS 13:29
PROVIDERS: ADMIT Obstetrics & Gynecology; ATTEND Obstetrics & Gynecology
PROC: 10D00Z1 Extraction of Products of Conception, Low, Open Approach (ICD-10-PCS; principal; 2020-10-04 09:30)
DX: O34.211 Maternal care for low transverse scar from previous cesarean delivery (principal); O09.523 Supervision of elderly multigravida, third trimester; Z37.0 Single live birth; Z3A.39 39 weeks gestation of pregnancy